=== PATIENT | female | born 1975 ===

== ENCOUNTER 2017-12-21 07:49 | Emergency (ER) | payer OTHER ==
[2017-12-21 07:50] VITALS: BMI 21.9
[2017-12-21 08:04] VITALS: RESP 20
--- NOTE | 2017-12-21 08:35 | C.PDOC ---
History Of Present Illness 42 y/o female with hx kidney stones in past, c/o sudden onset llq pain yesterday that radiates to back with nausea, vomiting and low grade fever. pt denies diarrhea. last bm yesterday. denies urinary frequency, urgency, dysuria and vaginal discharge. pt started taking azo yesterday with no relief. pt took 4 advil this morning, Time Seen by Provider: 12/21/17 08:13 Chief Complaint (Nursing): Abdominal Pain History Per: Patient History/Exam Limitations: no limitations Onset/Duration Of Symptoms: Days (2) Current Symptoms Are (Timing): Better (after 4 advil) Severity: Moderate Location Of Pain/Discomfort: LLQ Radiation Of Pain To:: Flank Associated Symptoms: Fever, Nausea, Vomiting, Urinary Symptoms. denies: Diarrhea Last Bowel Movement: Yesterday Abnormal Vaginal Bleeding: No Past Medical History Reviewed: Historical Data, Nursing Documentation, Vital Signs Vital Signs: Last Vital Signs Temp 97.6 F 12/21/17 13:20 Pulse 60 12/21/17 13:20 Resp 20 12/21/17 13:20 BP 99/53 L 12/21/17 13:20 Pulse Ox 98 12/21/17 13:20 - Medical History PMH: Kidney Stones Surgical History: Other Surgeries: tubal ligation Family History: States: Unknown Family Hx - Social History Hx Alcohol Use: Yes Hx Substance Use: No - Immunization History Hx Tetanus Toxoid Vaccination: No Hx Influenza Vaccination: No Hx Pneumococcal Vaccination: No Review Of Systems Constitutional: Positive for: Fever Cardiovascular: Negative for: Chest Pain Respiratory: Negative for: Cough, Shortness of Breath Gastrointestinal: Positive for: Nausea, Vomiting, Abdominal Pain. Negative for : Diarrhea, Constipation Genitourinary: Negative for: Dysuria, Frequency, Vaginal Discharge, Vaginal Bleeding Skin: Negative for: Rash Neurological: Negative for: Weakness, Numbness Physical Exam - Physical Exam Appears: Non-toxic, No Acute Distress Skin: Warm, Dry Head: Atraumatic, Normacephalic Neck: Supple Chest: No Deformity, No Tenderness Cardiovascular: Rhythm Regular, No Murmur Respiratory: No Decreased Breath Sounds, No Wheezing Gastrointestinal/Abdominal: Bowel Sounds, Soft, Tenderness (mild suprapubic tenderness), No Distention, No Guarding, No Rebound Back: No CVA Tenderness Neurological/Psych: Oriented x3, Normal Speech, Normal Cognition ED Course And Treatment - Laboratory Results Result Diagrams: 12/21/17 10:35 12/21/17 10:35 O2 Sat by Pulse Oximetry: 97 Medical Decision Making Medical Decision Making: pt with low ab pain. suprapubic to left side, with fever, vomiting. nausea. hx kidney stones. pt with dec pain now due to taking 4 advil at home prior to comiung; ddx includes ovarian cyst. pyelo, uti. diverticulitis, pelvic infection. await labs and ua to determine best imagining modality. 1238 pt tolerating po fluids here; pt with uti/early pyelo., given one dose iv antibiotics in ed. will d/c home wiht levaquin. Disposition Counseled Patient/Family Regarding: Studies Performed, Diagnosis, Need For Followup, Rx Given - Disposition Referrals: [facility] [Outside] Nicholas Renteria MD [Staff Provider] - Disposition: HOME/ ROUTINE Disposition Time: 12:41 Condition: IMPROVED Additional Instructions: Please take antibiotics as prescribed, Drink increased fluids. 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 Return to ER for worse pain, vomiting. not tolerating antibiotics by mouth. Prescriptions: Levofloxacin [Levaquin] 750 mg PO DAILY #5 tablet Instructions: Kidney Infection (DC) Forms: General Discharge Instructions, [facility] ([place]), Work Excuse - Clinical Impression Clinical Impression: Pyelonephritis
[2017-12-21 08:52] LABS: HCG,QUALITATIVE URINE NEGATIVE (NEGATIVE)
[2017-12-21 09:27] LABS: URINE BILIRUBIN NEGATIVE (NEGATIVE); URINE BLOOD NEGATIVE (NEGATIVE); URINE CLARITY Clear (Clear); URINE COLOR Amber (YELLOW); URINE GLUCOSE (UA) NORMAL (Normal); URINE LEUKOCYTE ESTERASE 1+ Leu/uL (Negative); URINE PROTEIN NEGATIVE (NEGATIVE); URINE UROBILINOGEN NORMAL mg/dL (0.2-1.0)
[2017-12-21 09:40] LABS: SQUAMOUS EPITHIAL 2 /hpf (0-5); URINE BACTERIA MANY (<OCC)
[2017-12-21 10:39] LABS: BASO # 0.1 K/uL (0.0-0.2); BASO % 0.5 % (0.0-2.0); EOS % 0.3 % (0.0-4.0); MEAN CORPUSCULAR HEMOGLOBIN 28.4 pg (27.0-31.0); MEAN PLATELET VOLUME 10.1 fL (7.2-11.7); MONO # 1.3 K/uL (0.0-0.8); MONO % 9.8 % (0.0-10.0); NEUT # 10.5 K/uL (1.8-7.0); NEUT % 81.4 % (50.0-75.0); PLATELET COUNT 227 K/uL (130-400); RBC 4.59 Mil/uL (3.80-5.20); RED CELL DISTRIBUTION WIDTH 15.7 % (11.5-14.5); WHITE BLOOD COUNT 12.9 K/uL (4.8-10.8)
--- NOTE | 2017-12-21 10:56 | CT ---
Date of service: 12/21/2017 PROCEDURE: CT Abdomen and Pelvis without intravenous contrast HISTORY: left low quad pain, hematuria, hx kidney stones COMPARISON: None. TECHNIQUE: Contiguous images were obtained from the domes of the diaphragms to the upper thighs without the administration of intravenous contrast. Oral contrast was not administered. Radiation dose: Total exam DLP = 293.5 mGy-cm. This CT exam was performed using one or more of the following dose reduction techniques: Automated exposure control, adjustment of the mA and/or kV according to patient size, and/or use of iterative reconstruction technique. FINDINGS: LOWER THORAX: Unremarkable. LIVER: Unremarkable. No gross lesion or ductal dilatation. GALLBLADDER AND BILE DUCTS: Unremarkable. PANCREAS: Unremarkable. No gross lesion or ductal dilatation. SPLEEN: Unremarkable. ADRENALS: Unremarkable. No mass. KIDNEYS AND URETERS: 6 mm nonobstructive right lower pole calculus. 5 mm nonobstructive left upper pole, 4 mm nonobstructive left interpolar and punctate nonobstructive left lower pole calculi. No solid mass. VASCULATURE: Unremarkable. No aortic aneurysm. BOWEL: Unremarkable. No obstruction. No gross mural thickening. APPENDIX: Unremarkable. Normal appendix. PERITONEUM: Unremarkable. No free fluid. No free air. LYMPH NODES: Unremarkable. No enlarged lymph nodes. BLADDER: Unremarkable. REPRODUCTIVE: Unremarkable. BONES: No acute fracture. OTHER FINDINGS: Umbilical ornamentation. IMPRESSION: No obstructive uropathy or evidence of recently passed genitourinary calculus. Nonobstructive bilateral calculi as described above.
[2017-12-21 10:57] LABS: ALB/GLOB RATIO 1.2 (1.0-2.1); ALBUMIN 3.9 g/dL (3.5-5.0); ALT/SGPT 27 U/L (9-52); AST/SGOT 26 U/L (14-36); BLOOD UREA NITROGEN 7 mg/dL (7-17); CALCIUM 8.7 mg/dl (8.6-10.4); GFR AFRICAN-AMERICAN > 60; GFR NON-AFRICAN AMERICAN > 60
[2017-12-21 11:06] LABS: LYMPHOCYTE 8 % (20-40); MONOCYTE 3 % (0-10); NEUTROPHIL 89 % (50-75); TOTAL CELLS COUNTED 100
[2017-12-21 11:07] LABS: PLATELET ESTIMATE NORMAL (NORMAL)
[2017-12-21] MEDS ORDERED: cefTRIAXone IV 1 gm in Dextros 1 GM in Dextrose 5% In Water 50 ML IVPB STA (11:17)
[2017-12-21] MEDS ORDERED: cefTRIAXone IV 1 gm in Dextros 50 ML IVPB ONE (11:23)
[2017-12-21 13:21] VITALS: BP 99/53; PULSE 60; TEMP 97.6
[2017-12-22 22:12] VITALS: O2SAT 97
== END 2017-12-21 13:00 | disposition home or self-care (01) ==
LOC: C.ER 07:49
DX: N12 Tubulo-interstitial nephritis, not specified as acute or chronic (principal)
CPT/HCPCS: 74176; 80053; 81001; 84703; 85025; 96365; 99285; J0696